=== PATIENT | female | born 1950 | race Caucasian/White ===

== ENCOUNTER 2021-06-22 07:07 | Inpatient (IN) | payer MEDICARE, BC ==
[2021-06-21 12:09] LABS: BASOPHILS % (AUTO) 0.6 % (0-1); EOSINOPHILS # (AUTO) 0.1 X10'3 (0-0.9); EOSINOPHILS % (AUTO) 1.9 % (0-6); HEMOGLOBIN 12.5 g/dl (12.0-16.0); LYMPHOCYTES # (AUTO) 1.7 X10'3 (1.1-4.8); MEAN CORPUSCULAR HEMOGLOBIN 27.7 PG (27.0-31.0); MEAN CORPUSCULAR HGB CONC 32.8 g/dL (33.0-36.5); MEAN CORPUSCULAR VOLUME 84.3 FL (78-98); MONOCYTES # (AUTO) 0.4 X10'3 (0-0.9); MONOCYTES % (AUTO) 7.7 % (2-12); NEUTROPHILS # (AUTO) 3.1 X10'3 (1.8-7.7); NEUTROPHILS % (AUTO) 57.8 % (42-75); PLATELET COUNT 126 X10'3 (140-440); RED BLOOD COUNT 4.51 X10'6 (4.20-5.60); RED CELL DISTRIBUTION WIDTH 15.5 % (11.5-14.5); WHITE BLOOD COUNT 5.4 X10'3 (4.5-11.0)
[2021-06-21 12:23] LABS: APTT 29 SECONDS (22-32)
[2021-06-21 12:58] LABS: ALBUMIN 4.2 G/DL (3.4-5.0); ANION GAP 14 (8-16); BLOOD UREA NITROGEN 24 MG/DL (7-18); BUN/CREATININE RATIO 16.6 (6.6-38.0); CALCIUM 8.8 MG/DL (8.5-10.1); CHLORIDE 106 MMOL/L (99-107); CREATININE 1.45 MG/DL (0.40-0.90); GLUCOSE 85 MG/DL (70-104); POTASSIUM 4.4 MMOL/L (3.5-5.1); SODIUM 141 MMOL/L (135-145); TOTAL CARBON DIOXIDE 21.1 MMOL/L (24-32); eGFR 36 ML/MIN
[~2021-06-22] VITALS: Ht 167.6 cm; Wt 81.6 kg
[2021-06-22] MEDS ORDERED: acetylcysteine 200 MG/ml 4ml vial PO PRN (07:25)
[2021-06-22] MEDS ORDERED: LIDOcaine/PRILOcaine 5gm cream TP ONE (07:25)
[2021-06-22] MEDS ORDERED: sodium bicarbonate (8.4%) inj. 150 ML in dextrose 5%-water 1,000 ML IV ONE (07:25)
[2021-06-22 07:27] VITALS: BP 116/70
[2021-06-22] MEDS ORDERED: ROSU20TA31 PO (07:49)
[2021-06-22] MEDS ORDERED: FURO20TA4 PO (07:49)
[2021-06-22] MEDS ORDERED: POTA8TAB69 PO (07:49)
[2021-06-22] MEDS ORDERED: Fish Oil PO (07:51)
[2021-06-22] MEDS: normal saline 1,000 ML IV SCH ×2 (08:25→16:14)
[2021-06-22] MEDS ORDERED: FLU VACC QS2021-22(6MOS UP)/PF 60 MCG/0.5 ML SYRINGE IM ONE (08:30)
[2021-06-22] MEDS ORDERED: pneumococcal 23-VAL P-sac vacc 25 mcg/0.5ml vial IMVAC ONE (08:30)
[2021-06-22 08:46] VITALS: BP 116/70
[2021-06-22] MEDS ORDERED: midazolam 1 mg/ML 2ml injection ONE ×2 (08:51→10:49)
[2021-06-22] MEDS ORDERED: verapamil 2.5 mg/ml inj IV ONE (08:51)
[2021-06-22] MEDS ORDERED: iohexol 350 MG/ML 50ML vial IV ONE (08:52)
[2021-06-22] MEDS ORDERED: LIDOcaine 1% (10mg/ml)w/preservative inj. 20ml MDV ONE (08:52)
[2021-06-22] MEDS ORDERED: fentaNYL/PF 50MCG/1 ML 2ML syringe ONE (08:52)
[2021-06-22] MEDS ORDERED: heparin 1,000unit/ml 10ml vial 10 ML ONE (08:52)
[2021-06-22] MEDS ORDERED: iohexol 350MG/ML 100ml bottle IV ONE (08:52)
[2021-06-22] MEDS ORDERED: nitroGLYCERIN-Tridil 50MG/D5W 250 ML IV ONE (09:09)
[2021-06-22] MEDS ORDERED: heparin 25,000 UNIT/250ml bag 250 ML IV ONE (10:14)
[2021-06-22] MEDS ORDERED: furosemide 40mg/4ml inj ONE ×2 (10:35→10:41)
[2021-06-22] MEDS ORDERED: LORazepam 2 mg/ml vial ONE (10:47)
[2021-06-22 12:10] LABS: ISTAT Hct MIX 33 %PCV (35-48); ISTAT O2 SATURATION MIX VENOUS 50 % (60-80); ISTAT O2 SATURATION MIX VENOUS 91 % (60-80); ISTAT SOURCE BLNK
[2021-06-22 15:00] VITALS: BP 164/73
[2021-06-22 19:15] VITALS: BP 105/68
[2021-06-22] MEDS: potassium chloride 10mEq ER tablet PO SCH (20:06)
[2021-06-22] MEDS: furosemide 40mg/4ml inj IV SCH (20:06)
[2021-06-22 22:00] VITALS: BP 100/63
[2021-06-23 02:00] VITALS: BP 130/89
[2021-06-23] MEDS: normal saline 1,000 ML IV SCH (03:18)
[2021-06-23 06:00] VITALS: BP 133/88
--- NOTE | 2021-06-23 06:29 | NUR ---
Problems reprioritized. Patient report given, questions answered & plan of care reviewed with Marixa BRADEN.
[2021-06-23 07:22] LABS: ALANINE AMINOTRANSFERASE 35 U/L (12-78); ALBUMIN 3.5 G/DL (3.4-5.0); ALBUMIN/GLOBULIN RATIO 1.3 (1.1-1.5); ALKALINE PHOSPHATASE 70 IU/L (46-116); ANION GAP 9 (8-16); ASPARTATE AMINO TRANSFERASE 13 U/L (10-37); BILIRUBIN,TOTAL 2.1 MG/DL (0.1-1.0); BLOOD UREA NITROGEN 23 MG/DL (7-18); BUN/CREATININE RATIO 16.8 (6.6-38.0); CALCIUM 8.8 MG/DL (8.5-10.1); CHLORIDE 109 MMOL/L (99-107); CHOL/HDL RATIO 3.8 (0.00-4.99); CHOLESTEROL 194 MG/DL (0-200); CREATININE 1.37 MG/DL (0.40-0.90); GLUCOSE 95 MG/DL (70-104); HDL CHOLESTEROL 51 MG/DL (35-60); LDL CHOLESTEROL 134 MG/DL (50-100); POTASSIUM 3.9 MMOL/L (3.5-5.1); SODIUM 142 MMOL/L (135-145); TOTAL CARBON DIOXIDE 24.2 MMOL/L (24-32); TOTAL PROTEIN 6.3 G/DL (6.4-8.2); TRIGLYCERIDES 74 MG/DL (20-135); eGFR 38 ML/MIN
[2021-06-23] MEDS: potassium chloride 10mEq ER tablet PO SCH (07:58)
[2021-06-23] MEDS: furosemide 40mg/4ml inj IV SCH (07:59)
[2021-06-23] MEDS ORDERED: OMEGA-3/DHA/EPA/FISH OIL 1 EACH CAPSULE.DR PO SCH (08:00)
[2021-06-23] MEDS ORDERED: furosemide 20MG tablet PO SCH (08:00)
[2021-06-23 11:00] VITALS: BP 104/54
[2021-06-23] MEDS ORDERED: FURO40TA4 PO ×2 (13:03)
[2021-07-13] MEDS ORDERED: FURO20TA4 PO (16:40)
[2021-07-20] MEDS ORDERED: FURO20TA4 PO (08:14)
[2021-07-20] MEDS ORDERED: HYDR-3972 PO (08:14)
[2021-07-20] MEDS ORDERED: POTA8TAB69 PO (08:14)
[2021-07-20] MEDS ORDERED: LOP12.5T PO (08:14)
[2021-07-20] MEDS ORDERED: ASPI-1071 PO (08:14)
== END 2021-06-23 15:58 | disposition home or self-care (01) | DRG 286 ==
LOC: SSTAY O 07:07 → PCU 3S 11:43
PROVIDERS: ADMIT Internal Medicine Cardiovascular Disease; ATTEND Internal Medicine Cardiovascular Disease
PROC: 4A023N8 Measurement of Cardiac Sampling and Pressure, Bilateral, Percutaneous Approach (ICD-10-PCS; principal; 2021-06-22)
PROC: B2111ZZ Fluoroscopy of Multiple Coronary Arteries using Low Osmolar Contrast (ICD-10-PCS; 2021-06-22)
PROC: B2151ZZ Fluoroscopy of Left Heart using Low Osmolar Contrast (ICD-10-PCS; 2021-06-22)
PROC: B3101ZZ Fluoroscopy of Thoracic Aorta using Low Osmolar Contrast (ICD-10-PCS; 2021-06-22)
DX: I35.8 Other nonrheumatic aortic valve disorders (principal); I50.21 Acute systolic (congestive) heart failure; E78.5 Hyperlipidemia, unspecified; G47.33 Obstructive sleep apnea (adult) (pediatric); Z28.21 Immunization not carried out because of patient refusal; Z90.710 Acquired absence of both cervix and uterus; Z82.49 Family history of ischemic heart disease and other diseases of the circulatory system; Z83.3 Family history of diabetes mellitus; Z80.0 Family history of malignant neoplasm of digestive organs
CPT/HCPCS: 36415; 76937; 80048; 80053; 80061; 82803; 83880; 85014; 85025; 85610; 85730; 93005; 93306; 93460; 93567; 94660; 94760; 99152; 99153; A4620; A5120; A6258; C1769; C1894; G0378; J1644; J1940; J2060; J2250; J3010; J3490; J7030; Q9967

== ENCOUNTER 2021-07-01 08:57 | Outpatient (CLI) | payer MEDICARE, BC ==
[~2021-07-01] VITALS: Ht 165.1 cm; Wt 83.0 kg
[~2021-07-01 08:57] MED LIST: FURO40TA4 PO; Fish Oil PO; POTA8TAB69 PO; ROSU20TA31 PO
[2021-07-01] MEDS ORDERED: iohexol 350MG/ML 100ml bottle IV ONE (09:45)
[2021-07-01] MEDS ORDERED: IODIXANOL 320 MG/ML INFUS..BTL 100ML IV ONE (10:09)
[2021-07-01] MEDS ORDERED: IODIXANOL 320 MG/ML INFUS..BTL 50ML IV ONE (10:10)
[2021-07-01 10:32] LABS: EOSINOPHILS # (AUTO) 0.1 X10'3 (0-0.9); EOSINOPHILS % (AUTO) 2.3 % (0-6); HEMATOCRIT 37.2 % (35.0-45.0); HEMOGLOBIN 12.5 g/dl (12.0-16.0); LYMPHOCYTES # (AUTO) 1.7 X10'3 (1.1-4.8); LYMPHOCYTES % (AUTO) 33.7 % (21-51); MEAN CORPUSCULAR HEMOGLOBIN 27.9 PG (27.0-31.0); MEAN CORPUSCULAR HGB CONC 33.5 g/dL (33.0-36.5); MEAN CORPUSCULAR VOLUME 83.3 FL (78-98); MEAN PLATELET VOLUME 10.2 FL (7.4-10.4); MONOCYTES # (AUTO) 0.4 X10'3 (0-0.9); MONOCYTES % (AUTO) 8.6 % (2-12); NEUTROPHILS # (AUTO) 2.7 X10'3 (1.8-7.7); NEUTROPHILS % (AUTO) 54.4 % (42-75); PLATELET COUNT 131 X10'3 (140-440); RED BLOOD COUNT 4.47 X10'6 (4.20-5.60); RED CELL DISTRIBUTION WIDTH 15.1 % (11.5-14.5); WHITE BLOOD COUNT 4.9 X10'3 (4.5-11.0)
[2021-07-01 10:33] LABS: APTT 28 SECONDS (22-32)
[2021-07-01 10:36] LABS: ALANINE AMINOTRANSFERASE 33 U/L (12-78); ALBUMIN/GLOBULIN RATIO 1.2 (1.1-1.5); ALKALINE PHOSPHATASE 84 IU/L (46-116); ASPARTATE AMINO TRANSFERASE 19 U/L (10-37); BILIRUBIN,TOTAL 1.5 MG/DL (0.1-1.0); BLOOD UREA NITROGEN 28 MG/DL (7-18); BUN/CREATININE RATIO 19.4 (6.6-38.0); CALCIUM 8.9 MG/DL (8.5-10.1); CHLORIDE 107 MMOL/L (99-107); CREATININE 1.44 MG/DL (0.40-0.90); GLUCOSE 93 MG/DL (70-104); POTASSIUM 3.7 MMOL/L (3.5-5.1); TOTAL PROTEIN 7.4 G/DL (6.4-8.2); eGFR 36 ML/MIN
[2021-07-01 10:37] LABS: ANION GAP 12 (8-16); SODIUM 144 MMOL/L (135-145); TOTAL CARBON DIOXIDE 24.8 MMOL/L (24-32)
[2021-07-01] MEDS ORDERED: albuterol 2.5 MG/3 ML nebule NEB ONE (13:15)
== END 2021-07-01 23:59 | disposition home or self-care (01) ==
LOC: RAD 08:57
PROVIDERS: ATTEND Internal Medicine Cardiovascular Disease
DX: M47.819 Spondylosis without myelopathy or radiculopathy, site unspecified (principal); K80.20 Calculus of gallbladder without cholecystitis without obstruction; I71.2 Thoracic aortic aneurysm, without rupture; K42.9 Umbilical hernia without obstruction or gangrene; I51.7 Cardiomegaly; I35.1 Nonrheumatic aortic (valve) insufficiency; I70.0 Atherosclerosis of aorta; I65.23 Occlusion and stenosis of bilateral carotid arteries; R94.2 Abnormal results of pulmonary function studies; Z20.822 Contact with and (suspected) exposure to COVID-19
CPT/HCPCS: 36415; 71046; 71275; 74174; 80053; 85025; 85610; 85730; 87635; 93880; 94060; 94727; 94729; 94760; C9803; Q9967

== ENCOUNTER 2021-07-30 22:29 | Inpatient (IN) | payer MEDICARE, BC ==
[~2021-07-30] VITALS: Ht 167.6 cm; Wt 89.6 kg
[~2021-07-30 22:29] MED LIST changes: +ASPI-1071 PO; +FURO20TA4 PO; -FURO40TA4 PO; +HYDR-3972 PO; +LOP12.5T PO
[2021-07-30 23:18] LABS: BASOPHILS # (AUTO) 0.1 X10'3 (0-0.2); BASOPHILS % (AUTO) 0.8 % (0-1); EOSINOPHILS % (AUTO) 0.4 % (0-6); HEMATOCRIT 29.6 % (35.0-45.0); HEMOGLOBIN 9.9 g/dl (12.0-16.0); LYMPHOCYTES # (AUTO) 1.5 X10'3 (1.1-4.8); LYMPHOCYTES % (AUTO) 14.6 % (21-51); MEAN CORPUSCULAR HEMOGLOBIN 28.6 PG (27.0-31.0); MEAN CORPUSCULAR HGB CONC 33.5 g/dL (33.0-36.5); MEAN CORPUSCULAR VOLUME 85.1 FL (78-98); MONOCYTES # (AUTO) 1.3 X10'3 (0-0.9); NEUTROPHILS # (AUTO) 7.6 X10'3 (1.8-7.7); NEUTROPHILS % (AUTO) 72.2 % (42-75); PLATELET COUNT 309 X10'3 (140-440); RED BLOOD COUNT 3.48 X10'6 (4.20-5.60); RED CELL DISTRIBUTION WIDTH 17.7 % (11.5-14.5); WHITE BLOOD COUNT 10.5 X10'3 (4.5-11.0)
[2021-07-30 23:37] LABS: ALANINE AMINOTRANSFERASE 226 U/L (12-78); ALBUMIN 2.9 G/DL (3.4-5.0); ALBUMIN/GLOBULIN RATIO 0.9 (1.1-1.5); ALKALINE PHOSPHATASE 162 IU/L (46-116); ANION GAP 17 (8-16); ASPARTATE AMINO TRANSFERASE 189 U/L (10-37); BILIRUBIN,TOTAL 1.4 MG/DL (0.1-1.0); BLOOD UREA NITROGEN 31 MG/DL (7-18); BUN/CREATININE RATIO 20.7 (6.6-38.0); CALCIUM 8.5 MG/DL (8.5-10.1); CHLORIDE 96 MMOL/L (99-107); GLUCOSE 134 MG/DL (70-104); POTASSIUM 4.1 MMOL/L (3.5-5.1); SODIUM 132 MMOL/L (135-145); TOTAL PROTEIN 6.2 G/DL (6.4-8.2); eGFR 34 ML/MIN
[2021-07-30] MEDS ORDERED: diltiazem 5mg/ml 5ml inj. IV ONE ×2 (23:45)
[2021-07-30] MEDS ORDERED: metoprolol tartrate 1mg/ml inj IV ONE (23:45)
[2021-07-30] MEDS ORDERED: diltiazem-NS 100mg/100ml 125 ML IV PRN (23:45)
[2021-07-31] MEDS: diltiazem-NS 100mg/100ml 100 ML IV PRN ×2 (00:03→07:18)
[2021-07-31] MEDS ORDERED: diltiazem 5mg/ml 5ml inj. IV ONE (00:15)
[2021-07-31] MEDS ORDERED: metoprolol tartrate 1mg/ml inj IV ONE (00:15)
[2021-07-31] MEDS ORDERED: normal saline 1000ML IV soln IVB ONE (00:45)
[2021-07-31] MEDS ORDERED: POTA8CAP20 PO (00:50)
[2021-07-31] MEDS ORDERED: ASPI-1397 PO (00:50)
[2021-07-31] MEDS ORDERED: FURO40TA4 PO (00:50)
[2021-07-31] MEDS ORDERED: METO25TA6 PO (00:50)
[2021-07-31] MEDS ORDERED: amiodarone 150mg/dext, iso-os 100 ML IV ONE (01:05)
[2021-07-31 01:15] LABS: MAGNESIUM 2.2 MG/DL (1.5-2.4)
[2021-07-31] MEDS: amiodarone/D5 360MG/200ML BAG 200 ML IV SCH ×4 (01:42→19:07)
[2021-07-31] MEDS ORDERED: diphenhydrAMINE 25mg capsule PO PRN (03:35)
[2021-07-31] MEDS ORDERED: bisacodyl 10mg suppository rectal RC PRN (03:35)
[2021-07-31] MEDS ORDERED: ondansetron/PF 4mg/2ml inj IV PRN (03:35)
[2021-07-31] MEDS ORDERED: diphenhydrAMINE 50 mg/ml inj IV PRN (03:35)
[2021-07-31] MEDS ORDERED: ondansetron 4mg rapidly disintigrating tab PO PRN (03:35)
[2021-07-31] MEDS ORDERED: ipratropium/albuterol 3ml nebule NEB PRN (03:35)
[2021-07-31] MEDS ORDERED: mag hydrox/Alum hydrox/simeth 30ml oral suspension PO PRN (03:35)
[2021-07-31] MEDS ORDERED: morphine 2 MG/ML inj. syringe IV PRN ×2 (03:35)
[2021-07-31] MEDS ORDERED: naloxone 0.4 mg/ml inj IV PRN (03:35)
[2021-07-31] MEDS ORDERED: acetaminophen 325mg tablet PO PRN (03:35)
[2021-07-31] MEDS ORDERED: acetaminophen 650mg rectal suppository RC PRN (03:35)
[2021-07-31] MEDS ORDERED: heparin 10,000 units/1 ML INJ IV ONE (03:50)
[2021-07-31] MEDS ORDERED: heparin 25,000 UNIT/250ml bag 250 ML IV SCH (03:50)
[2021-07-31] MEDS ORDERED: metoprolol tartrate 12.5mg (1/2 tablet) PO PRN (03:50)
[2021-07-31] MEDS ORDERED: heparin 10,000 units/1 ML INJ IV PRN (03:50)
[2021-07-31 05:17] LABS: EOSINOPHILS % (AUTO) 0.2 % (0-6); HEMATOCRIT 27.9 % (35.0-45.0); HEMOGLOBIN 9.1 g/dl (12.0-16.0); MEAN CORPUSCULAR HEMOGLOBIN 27.8 PG (27.0-31.0); MEAN CORPUSCULAR HGB CONC 32.7 g/dL (33.0-36.5); RED BLOOD COUNT 3.29 X10'6 (4.20-5.60)
[2021-07-31 05:19] LABS: BASOPHILS # (AUTO) 0.1 X10'3 (0-0.2); BASOPHILS % (AUTO) 0.8 % (0-1); LYMPHOCYTES # (AUTO) 1.3 X10'3 (1.1-4.8); MEAN CORPUSCULAR VOLUME 85.1 FL (78-98); MEAN PLATELET VOLUME 8.4 FL (7.4-10.4); MONOCYTES % (AUTO) 11.3 % (2-12); NEUTROPHILS # (AUTO) 6.8 X10'3 (1.8-7.7); NEUTROPHILS % (AUTO) 73.7 % (42-75); PLATELET COUNT 252 X10'3 (140-440); RED CELL DISTRIBUTION WIDTH 17.7 % (11.5-14.5); WHITE BLOOD COUNT 9.2 X10'3 (4.5-11.0)
[2021-07-31 05:39] LABS: APTT 34 SECONDS (22-32)
[2021-07-31 05:44] LABS: HEMOGLOBIN A1C 5.6 % (4.5-6.2)
[2021-07-31 05:50] LABS: CREATINE KINASE 33 U/L (26-192); LIPASE 62 U/L (73-393); PHOSPHORUS 5.1 MG/DL (2.3-4.5)
[2021-07-31] MEDS: docusate sod 100mg capsule PO SCH ×3 (08:00→19:35)
[2021-07-31] MEDS: pantoprazole 40mg Tablet.DR PO SCH (10:08)
[2021-07-31] MEDS: aspirin 81mg, enteric-coated 1 TAB TABLET.DR PO SCH (10:08)
[2021-07-31] MEDS: furosemide 40mg/4ml inj IV SCH ×2 (10:10→20:03)
[2021-07-31] MEDS: levoFLOXACIN-Levaquin 750MG/D5 150 ML IV SCH (10:34)
--- NOTE | 2021-07-31 11:19 | NUR ---
called dr saleh and clarified cancellation orders for cardizem and heparin. both meds are to be stopped and new order received for cardizem 30mg PO Q6h per delfino. order placed as received
--- NOTE | 2021-07-31 12:26 | NUR ---
pt reports feelings of retention that she needs to urinate but is unable to. is requesting beckett catheter. scanned bladder which shows retention of 597. rusu made aware and verbal order for beckett catheter received. order placed as received.
[2021-07-31] MEDS: diltiazem 30mg tablet PO SCH ×3 (12:30→19:35)
[2021-07-31] MEDS ORDERED: diltiazem 30mg tablet PO SCH (14:00)
[2021-07-31] MEDS ORDERED: docusate sod 100mg capsule PO ONE (19:15)
[2021-07-31] MEDS: HYDROcodone/acetaminophen 5mg/325mg tablet PO PRN (20:03)
[2021-07-31] MEDS ORDERED: temazepam 15mg capsule PO PRN (21:00)
[2021-07-31 22:27] VITALS: BP 118/98
[2021-08-01] VITALS (11 sets, daily range): BP systolic 88–125; BP diastolic 64–93
[2021-08-01] MEDS: amiodarone/D5 360MG/200ML BAG 200 ML IV SCH ×2 (01:22→07:40)
[2021-08-01] MEDS: HYDROcodone/acetaminophen 5mg/325mg tablet PO PRN (02:14)
[2021-08-01] MEDS: diltiazem 30mg tablet PO SCH ×3 (02:16→14:00)
[2021-08-01 07:05] LABS: BASOPHILS % (AUTO) 0.4 % (0-1); EOSINOPHILS # (AUTO) 0.1 X10'3 (0-0.9); EOSINOPHILS % (AUTO) 0.5 % (0-6); HEMATOCRIT 27.8 % (35.0-45.0); HEMOGLOBIN 9.1 g/dl (12.0-16.0); LYMPHOCYTES # (AUTO) 0.9 X10'3 (1.1-4.8); LYMPHOCYTES % (AUTO) 9.4 % (21-51); MEAN CORPUSCULAR HEMOGLOBIN 27.1 PG (27.0-31.0); MEAN CORPUSCULAR HGB CONC 32.6 g/dL (33.0-36.5); MEAN CORPUSCULAR VOLUME 83.2 FL (78-98); MEAN PLATELET VOLUME 7.9 FL (7.4-10.4); MONOCYTES # (AUTO) 1.2 X10'3 (0-0.9); MONOCYTES % (AUTO) 12.5 % (2-12); NEUTROPHILS # (AUTO) 7.4 X10'3 (1.8-7.7); NEUTROPHILS % (AUTO) 77.2 % (42-75); PLATELET COUNT 296 X10'3 (140-440); RED BLOOD COUNT 3.35 X10'6 (4.20-5.60); WHITE BLOOD COUNT 9.6 X10'3 (4.5-11.0)
[2021-08-01 07:38] LABS: ALANINE AMINOTRANSFERASE 305 U/L (12-78); ALBUMIN 2.9 G/DL (3.4-5.0); ALBUMIN/GLOBULIN RATIO 0.9 (1.1-1.5); ALKALINE PHOSPHATASE 132 IU/L (46-116); ANION GAP 10 (8-16); ASPARTATE AMINO TRANSFERASE 170 U/L (10-37); BILIRUBIN,TOTAL 1.3 MG/DL (0.1-1.0); BLOOD UREA NITROGEN 28 MG/DL (7-18); CALCIUM 8.2 MG/DL (8.5-10.1); CHLORIDE 99 MMOL/L (99-107); CHOL/HDL RATIO 3.4 (0.00-4.99); CHOLESTEROL 104 MG/DL (0-200); CREATININE 1.47 MG/DL (0.40-0.90); GLUCOSE 119 MG/DL (70-104); HDL CHOLESTEROL 31 MG/DL (35-60); LDL CHOLESTEROL 59 MG/DL (50-100); POTASSIUM 3.6 MMOL/L (3.5-5.1); SODIUM 131 MMOL/L (135-145); TOTAL CARBON DIOXIDE 21.8 MMOL/L (24-32); TOTAL PROTEIN 6.1 G/DL (6.4-8.2); TRIGLYCERIDES 58 MG/DL (20-135); eGFR 35 ML/MIN
[2021-08-01] MEDS: pantoprazole 40mg Tablet.DR PO SCH (07:40)
[2021-08-01] MEDS: aspirin 81mg, enteric-coated 1 TAB TABLET.DR PO SCH (07:40)
[2021-08-01] MEDS: docusate sod 100mg capsule PO SCH ×2 (07:40→20:04)
[2021-08-01] MEDS: furosemide 40mg/4ml inj IV SCH ×2 (07:40→19:49)
[2021-08-01] MEDS ORDERED: diltiazem 5mg/ml 5ml inj. IV ONE (18:50)
[2021-08-01] MEDS ORDERED: diltiazem-D5W 125mg/125ml 125 ML IV SCH (18:50)
[2021-08-01] MEDS: diltiazem-NS 100mg/100ml 100 ML IV SCH (19:58)
[2021-08-01] MEDS ORDERED: apixaban 5mg tablet PO SCH (20:00)
[2021-08-01] MEDS: amiodarone 200mg tablet PO SCH (20:04)
[2021-08-01 20:11] LABS: ALANINE AMINOTRANSFERASE 268 U/L (12-78); ALBUMIN 2.6 G/DL (3.4-5.0); ALBUMIN/GLOBULIN RATIO 0.8 (1.1-1.5); ALKALINE PHOSPHATASE 133 IU/L (46-116); ASPARTATE AMINO TRANSFERASE 121 U/L (10-37); BILIRUBIN,DIRECT 0.5 MG/DL (0-0.3); BILIRUBIN,TOTAL 1.1 MG/DL (0.1-1.0)
[2021-08-01] MEDS: carVEDilol 12.5mg tablet PO SCH (21:03)
[2021-08-02] VITALS (10 sets, daily range): BP systolic 73–133; BP diastolic 51–105
[2021-08-02] MEDS: acetaminophen 325mg tablet PO PRN ×2 (03:59→08:33)
[2021-08-02] MEDS: diltiazem-NS 100mg/100ml 100 ML IV SCH (04:46)
[2021-08-02 06:06] LABS: BASOPHILS # (AUTO) 0.1 X10'3 (0-0.2); BASOPHILS % (AUTO) 0.6 % (0-1); EOSINOPHILS % (AUTO) 0.5 % (0-6); HEMATOCRIT 27.3 % (35.0-45.0); HEMOGLOBIN 8.9 g/dl (12.0-16.0); LYMPHOCYTES # (AUTO) 0.8 X10'3 (1.1-4.8); LYMPHOCYTES % (AUTO) 8.9 % (21-51); MEAN CORPUSCULAR HEMOGLOBIN 27.4 PG (27.0-31.0); MEAN CORPUSCULAR HGB CONC 32.6 g/dL (33.0-36.5); MEAN CORPUSCULAR VOLUME 84.1 FL (78-98); MEAN PLATELET VOLUME 7.9 FL (7.4-10.4); MONOCYTES % (AUTO) 11.9 % (2-12); NEUTROPHILS # (AUTO) 6.8 X10'3 (1.8-7.7); NEUTROPHILS % (AUTO) 78.1 % (42-75); PLATELET COUNT 261 X10'3 (140-440); RED BLOOD COUNT 3.25 X10'6 (4.20-5.60); RED CELL DISTRIBUTION WIDTH 17.8 % (11.5-14.5); WHITE BLOOD COUNT 8.8 X10'3 (4.5-11.0)
[2021-08-02 06:31] LABS: ALANINE AMINOTRANSFERASE 245 U/L (12-78); ALBUMIN 2.7 G/DL (3.4-5.0); ALBUMIN/GLOBULIN RATIO 0.8 (1.1-1.5); ALKALINE PHOSPHATASE 127 IU/L (46-116); ANION GAP 13 (8-16); ASPARTATE AMINO TRANSFERASE 107 U/L (10-37); BILIRUBIN,TOTAL 1.2 MG/DL (0.1-1.0); BLOOD UREA NITROGEN 35 MG/DL (7-18); BUN/CREATININE RATIO 15.4 (6.6-38.0); CALCIUM 8.3 MG/DL (8.5-10.1); CHLORIDE 96 MMOL/L (99-107); CREATININE 2.27 MG/DL (0.40-0.90); GLUCOSE 136 MG/DL (70-104); POTASSIUM 4.1 MMOL/L (3.5-5.1); SODIUM 131 MMOL/L (135-145); TOTAL CARBON DIOXIDE 22.3 MMOL/L (24-32); TOTAL PROTEIN 5.9 G/DL (6.4-8.2); eGFR 21 ML/MIN
--- NOTE | 2021-08-02 06:44 | NUR ---
Problems reprioritized. Patient report given, questions answered & plan of care reviewed with Karla BRADEN.
[2021-08-02] MEDS: furosemide 40mg/4ml inj IV SCH ×2 (08:00→20:32)
[2021-08-02] MEDS: carVEDilol 12.5mg tablet PO SCH ×2 (08:00→20:33)
[2021-08-02] MEDS: levoFLOXACIN-Levaquin 750MG/D5 150 ML IV SCH (08:31)
[2021-08-02] MEDS: aspirin 81mg, enteric-coated 1 TAB TABLET.DR PO SCH (08:33)
[2021-08-02] MEDS: pantoprazole 40mg Tablet.DR PO SCH (08:33)
[2021-08-02] MEDS: docusate sod 100mg capsule PO SCH ×2 (08:33→20:32)
[2021-08-02] MEDS: amiodarone 200mg tablet PO SCH ×2 (09:02→20:33)
[2021-08-02] MEDS ORDERED: LIDOCAINE 1% w/preservative (10 MG/ML) inj. 10mL VIAL ONE (10:49)
--- NOTE | 2021-08-02 18:56 | NUR ---
Problems reprioritized. Patient report given, questions answered & plan of care reviewed with Francois RN, patient stable at transfer of care.
[2021-08-03] VITALS (8 sets, daily range): BP systolic 92–125; BP diastolic 57–99
--- NOTE | 2021-08-03 06:39 | NUR ---
Problems reprioritized. Patient report given, questions answered & plan of care reviewed with Karla BRADEN.
[2021-08-03 07:01] LABS: BASOPHILS % (AUTO) 0.5 % (0-1); EOSINOPHILS # (AUTO) 0.1 X10'3 (0-0.9); EOSINOPHILS % (AUTO) 0.9 % (0-6); HEMATOCRIT 26.8 % (35.0-45.0); HEMOGLOBIN 8.9 g/dl (12.0-16.0); LYMPHOCYTES # (AUTO) 0.9 X10'3 (1.1-4.8); LYMPHOCYTES % (AUTO) 12.2 % (21-51); MEAN CORPUSCULAR HEMOGLOBIN 27.7 PG (27.0-31.0); MEAN CORPUSCULAR HGB CONC 33.2 g/dL (33.0-36.5); MEAN CORPUSCULAR VOLUME 83.5 FL (78-98); MEAN PLATELET VOLUME 7.8 FL (7.4-10.4); MONOCYTES # (AUTO) 0.9 X10'3 (0-0.9); NEUTROPHILS # (AUTO) 5.8 X10'3 (1.8-7.7); NEUTROPHILS % (AUTO) 74.4 % (42-75); PLATELET COUNT 223 X10'3 (140-440); RED BLOOD COUNT 3.21 X10'6 (4.20-5.60); RED CELL DISTRIBUTION WIDTH 17.8 % (11.5-14.5); WHITE BLOOD COUNT 7.8 X10'3 (4.5-11.0)
[2021-08-03 07:19] LABS: ALANINE AMINOTRANSFERASE 191 U/L (12-78); ALBUMIN 2.6 G/DL (3.4-5.0); ALBUMIN/GLOBULIN RATIO 0.8 (1.1-1.5); ALKALINE PHOSPHATASE 131 IU/L (46-116); ANION GAP 12 (8-16); ASPARTATE AMINO TRANSFERASE 64 U/L (10-37); BLOOD UREA NITROGEN 53 MG/DL (7-18); BUN/CREATININE RATIO 18.5 (6.6-38.0); CALCIUM 8.3 MG/DL (8.5-10.1); CHLORIDE 99 MMOL/L (99-107); CREATININE 2.87 MG/DL (0.40-0.90); GLUCOSE 117 MG/DL (70-104); SODIUM 133 MMOL/L (135-145); TOTAL CARBON DIOXIDE 22.2 MMOL/L (24-32); TOTAL PROTEIN 5.7 G/DL (6.4-8.2); eGFR 16 ML/MIN
[2021-08-03] MEDS: docusate sod 100mg capsule PO SCH ×2 (07:52→20:21)
[2021-08-03] MEDS: amiodarone 200mg tablet PO SCH ×2 (07:52→20:21)
[2021-08-03] MEDS: pantoprazole 40mg Tablet.DR PO SCH (07:53)
[2021-08-03] MEDS: aspirin 81mg, enteric-coated 1 TAB TABLET.DR PO SCH (07:53)
[2021-08-03] MEDS: carVEDilol 12.5mg tablet PO SCH (07:54)
[2021-08-03] MEDS: normal saline 500ml IV soln 500 ML IV SCH ×2 (09:50→19:50)
--- NOTE | 2021-08-03 18:44 | NUR ---
Problems reprioritized. Patient report given, questions answered & plan of care reviewed with SAMPSON Dominguez.
[2021-08-03] MEDS: carVEDilol 3.125mg tablet PO SCH (20:00)
[2021-08-03] MEDS: acetaminophen 325mg tablet PO PRN (20:22)
[2021-08-03] MEDS: magnesium hydroxide 30ml (MOM) UD suspension PO PRN (20:25)
[2021-08-04] MEDS: normal saline 500ml IV soln 500 ML IV SCH ×2 (05:50→15:50)
[2021-08-04 06:00] VITALS: BP 107/82
--- NOTE | 2021-08-04 06:25 | NUR ---
Problems reprioritized. Patient report given, questions answered & plan of care reviewed with Karla. Addendum: 08/04/21 at 0625 by Raudel Layton RN Amended: Links added.
[2021-08-04 06:38] LABS: BASOPHILS % (AUTO) 0.4 % (0-1); EOSINOPHILS # (AUTO) 0.1 X10'3 (0-0.9); EOSINOPHILS % (AUTO) 0.8 % (0-6); HEMATOCRIT 29.9 % (35.0-45.0); HEMOGLOBIN 9.8 g/dl (12.0-16.0); LYMPHOCYTES # (AUTO) 1.2 X10'3 (1.1-4.8); LYMPHOCYTES % (AUTO) 15.4 % (21-51); MEAN CORPUSCULAR HEMOGLOBIN 27.6 PG (27.0-31.0); MEAN CORPUSCULAR HGB CONC 32.7 g/dL (33.0-36.5); MEAN CORPUSCULAR VOLUME 84.3 FL (78-98); MEAN PLATELET VOLUME 7.5 FL (7.4-10.4); MONOCYTES % (AUTO) 12.9 % (2-12); NEUTROPHILS # (AUTO) 5.6 X10'3 (1.8-7.7); NEUTROPHILS % (AUTO) 70.5 % (42-75); PLATELET COUNT 257 X10'3 (140-440); RED BLOOD COUNT 3.54 X10'6 (4.20-5.60); RED CELL DISTRIBUTION WIDTH 17.8 % (11.5-14.5); WHITE BLOOD COUNT 7.9 X10'3 (4.5-11.0)
[2021-08-04 07:15] LABS: ALANINE AMINOTRANSFERASE 143 U/L (12-78); ALBUMIN 2.4 G/DL (3.4-5.0); ALBUMIN/GLOBULIN RATIO 0.8 (1.1-1.5); ALKALINE PHOSPHATASE 118 IU/L (46-116); ANION GAP 8 (8-16); ASPARTATE AMINO TRANSFERASE 37 U/L (10-37); BILIRUBIN,TOTAL 0.9 MG/DL (0.1-1.0); BLOOD UREA NITROGEN 49 MG/DL (7-18); BUN/CREATININE RATIO 21.3 (6.6-38.0); CALCIUM 8.3 MG/DL (8.5-10.1); CHLORIDE 103 MMOL/L (99-107); GLUCOSE 108 MG/DL (70-104); POTASSIUM 3.9 MMOL/L (3.5-5.1); SODIUM 136 MMOL/L (135-145); TOTAL CARBON DIOXIDE 24.7 MMOL/L (24-32); TOTAL PROTEIN 5.5 G/DL (6.4-8.2); eGFR 21 ML/MIN
[2021-08-04] MEDS: levoFLOXACIN 750MG TABLET PO SCH (08:01)
[2021-08-04] MEDS: aspirin 81mg, enteric-coated 1 TAB TABLET.DR PO SCH (08:01)
[2021-08-04] MEDS: docusate sod 100mg capsule PO SCH ×2 (08:01→20:50)
[2021-08-04] MEDS: amiodarone 200mg tablet PO SCH ×2 (08:01→20:50)
[2021-08-04] MEDS: carVEDilol 3.125mg tablet PO SCH (08:02)
[2021-08-04] MEDS: pantoprazole 40mg Tablet.DR PO SCH (08:02)
--- NOTE | 2021-08-04 08:28 | NUR ---
Initial: Pt admitted w/ decompensated heart failure and pleural effusion, w/ recent hx of AVR on 07/15 per EMR. Currently on Regular diet w/ mostly 100% intake of meals meeting est nutrient needs at this time. Pt noted to have had thoracentesis 08/03 w/ 550ml out. LBM 07/30 receiving routine and PRN bowel care. No nutrition intervention implemented at this time, will continue to monitor. Recs: 1. Continue Regular diet as tolerated 2. Monitor need for additional protein 3. Routine bowel care; 5 days constipation 4. Scaled wts Addendum: 08/04/21 at [address] Amended: Links added.
[2021-08-04] MEDS ORDERED: APIX5TAB3 PO (09:55)
[2021-08-04] MEDS ORDERED: AMOX-580 PO (09:55)
[2021-08-04] MEDS ORDERED: carVEDilol 3.125mg tablet PO ONE (10:00)
--- NOTE | 2021-08-04 10:30 | NUR ---
O2 Sat at rest on room air:__87_% If below 89%: Recovery O2 Sat at rest on ___LPM:___%:___% via (mask/nasal cannula, etc..) No further documentation is necessary. If O2 Sat did not drop below 89% on room air,ambulate patient on room air. O2 Sat while ambulating on room air:___% Recovery O2 Sat while ambulating on ___LPM:___% No further documentation is necessary. If patient does not drop below 89% while ambulating, he/she does not qualify for home O2.
--- NOTE | 2021-08-04 10:50 | NUR ---
O2 Sat at rest on room air:_87__% If below 89%: Recovery O2 Sat at rest on _2__LPM:_96__%:___% via nasal cannula (mask/nasal cannula, etc..) No further documentation is necessary. If O2 Sat did not drop below 89% on room air,ambulate patient on room air. O2 Sat while ambulating on room air:___% Recovery O2 Sat while ambulating on ___LPM:___% No further documentation is necessary. If patient does not drop below 89% while ambulating, he/she does not qualify for home O2.
[2021-08-04 11:00] VITALS: BP 103/85
--- NOTE | 2021-08-04 14:29 | NUR ---
paged Dr. Rojas regarding pt not having an IV and he is requesting IV Digoxin. PAGER ID: [phone] MESSAGE: [phone], Roxanna Adhikari. I forgot pt doesn't have an IV, do you want me to try and get a new IV in? Karla U [id number].
[2021-08-04 15:00] VITALS: BP 116/89
--- NOTE | 2021-08-04 15:36 | NUR ---
Paged Dr. Rojas asking for PO digoxin. PAGER ID: [phone] MESSAGE: [phone], Roxanna Adhikari. I just tried to find a vein for a new IV and im not having success. Can we get that digoxin PO? Karla U [id number].
[2021-08-04] MEDS ORDERED: digoxin 250mcg (0.25mg) tablet PO ONE (15:40)
[2021-08-04 18:00] VITALS: BP 133/77
--- NOTE | 2021-08-04 18:44 | NUR ---
Problems reprioritized. Patient report given, questions answered & plan of care reviewed with SAMPSON Patel.
--- NOTE | 2021-08-04 18:58 | NUR ---
Patient in room PCU 3011. I have received report from DIAMOND BRADEN and had the opportunity to ask questions and assume patient care.
[2021-08-04] MEDS: carvedilol 6.25mg tablet PO SCH (20:51)
[2021-08-04] MEDS: magnesium hydroxide 30ml (MOM) UD suspension PO PRN (20:54)
[2021-08-04 22:00] VITALS: BP 101/62
[2021-08-05] VITALS (7 sets, daily range): BP systolic 114–164; BP diastolic 62–102
[2021-08-05] MEDS: normal saline 500ml IV soln 500 ML IV SCH (01:50)
--- NOTE | 2021-08-05 02:10 | NUR ---
PATIENT REFUSING TO HAVE AN IV STARTED. BOTH ARMS ARE SWOLLEN FROM PRIOR IV INSERTIONS. PATIENT EDUCATED AND STILL INSIST THAT SHE DOES NOT WANT TO BE POKED WITH A NEEDLE. DAY SHIFT HOSPITALIST AWARE AND I INFORMED NIGHT DOCTOR. WILL CONTINUE TO MONITOR PATIENT FOR AFIB.
[2021-08-05 06:33] LABS: BASOPHILS % (AUTO) 0.5 % (0-1); EOSINOPHILS # (AUTO) 0.1 X10'3 (0-0.9); EOSINOPHILS % (AUTO) 0.7 % (0-6); HEMATOCRIT 30.5 % (35.0-45.0); LYMPHOCYTES % (AUTO) 12.8 % (21-51); MEAN CORPUSCULAR HEMOGLOBIN 26.9 PG (27.0-31.0); MEAN CORPUSCULAR HGB CONC 32.7 g/dL (33.0-36.5); MEAN CORPUSCULAR VOLUME 82.4 FL (78-98); MEAN PLATELET VOLUME 7.4 FL (7.4-10.4); MONOCYTES # (AUTO) 1.1 X10'3 (0-0.9); NEUTROPHILS # (AUTO) 5.8 X10'3 (1.8-7.7); PLATELET COUNT 279 X10'3 (140-440); RED CELL DISTRIBUTION WIDTH 17.9 % (11.5-14.5); WHITE BLOOD COUNT 8.1 X10'3 (4.5-11.0)
--- NOTE | 2021-08-05 06:55 | NUR ---
Problems reprioritized. Patient report given, questions answered & plan of care reviewed with AJ BRADEN.
[2021-08-05 07:38] LABS: ALANINE AMINOTRANSFERASE 107 U/L (12-78); ALBUMIN 2.4 G/DL (3.4-5.0); ALBUMIN/GLOBULIN RATIO 0.7 (1.1-1.5); ALKALINE PHOSPHATASE 108 IU/L (46-116); ANION GAP 7 (8-16); ASPARTATE AMINO TRANSFERASE 25 U/L (10-37); BLOOD UREA NITROGEN 39 MG/DL (7-18); BUN/CREATININE RATIO 21.5 (6.6-38.0); CALCIUM 8.3 MG/DL (8.5-10.1); CHLORIDE 103 MMOL/L (99-107); CREATININE 1.81 MG/DL (0.40-0.90); GLUCOSE 118 MG/DL (70-104); POTASSIUM 4.4 MMOL/L (3.5-5.1); SODIUM 136 MMOL/L (135-145); TOTAL CARBON DIOXIDE 26.4 MMOL/L (24-32); TOTAL PROTEIN 5.7 G/DL (6.4-8.2); eGFR 28 ML/MIN
[2021-08-05] MEDS: aspirin 81mg, enteric-coated 1 TAB TABLET.DR PO SCH (09:37)
[2021-08-05] MEDS: carvedilol 6.25mg tablet PO SCH (09:37)
[2021-08-05] MEDS: pantoprazole 40mg Tablet.DR PO SCH (09:38)
[2021-08-05] MEDS: amiodarone 200mg tablet PO SCH ×2 (09:38→20:27)
[2021-08-05] MEDS: docusate sod 100mg capsule PO SCH ×2 (09:38→20:27)
--- NOTE | 2021-08-05 14:45 | NUR ---
Page: Question for Dr. Rojas on Discharge Orders. PAGER ID: [phone] MESSAGE: Regarding Zeynep Mcknight 3011 Discharge Order following Thoracentesis. Please Call [phone] Clarita Elkins RN
[2021-08-05] MEDS ORDERED: DIGO-20 PO (15:57)
[2021-08-05] MEDS ORDERED: COR3.125T PO (15:57)
[2021-08-05] MEDS ORDERED: carvedilol 6.25mg tablet PO ONE ×4 (18:45→23:00)
[2021-08-05] MEDS ORDERED: digoxin 250mcg/ml 2ml ampule IV ONE (19:15)
[2021-08-05] MEDS: magnesium hydroxide 30ml (MOM) UD suspension PO PRN (20:27)
[2021-08-06 02:00] VITALS: BP 102/43
[2021-08-06] MEDS ORDERED: digoxin 250mcg/ml 2ml ampule IV ONE (02:30)
[2021-08-06 06:00] VITALS: BP 101/60
--- NOTE | 2021-08-06 06:22 | NUR ---
Problems reprioritized. Patient report given, questions answered & plan of care reviewed with Clarita BRADEN.
[2021-08-06 06:58] VITALS: BP 109/72
[2021-08-06 07:22] LABS: ALBUMIN 2.3 G/DL (3.4-5.0); ANION GAP 5 (8-16); BLOOD UREA NITROGEN 31 MG/DL (7-18); BUN/CREATININE RATIO 20.3 (6.6-38.0); CALCIUM 8.2 MG/DL (8.5-10.1); CHLORIDE 104 MMOL/L (99-107); CREATININE 1.53 MG/DL (0.40-0.90); GLUCOSE 109 MG/DL (70-104); POTASSIUM 4.7 MMOL/L (3.5-5.1); SODIUM 136 MMOL/L (135-145); TOTAL CARBON DIOXIDE 27.4 MMOL/L (24-32); eGFR 34 ML/MIN
[2021-08-06] MEDS ORDERED: carvedilol 6.25mg tablet PO SCH (08:00)
[2021-08-06] MEDS: amiodarone 200mg tablet PO SCH (08:31)
[2021-08-06] MEDS: docusate sod 100mg capsule PO SCH (08:31)
[2021-08-06] MEDS: aspirin 81mg, enteric-coated 1 TAB TABLET.DR PO SCH (08:31)
[2021-08-06] MEDS: pantoprazole 40mg Tablet.DR PO SCH (08:31)
[2021-08-06] MEDS: levoFLOXACIN 750MG TABLET PO SCH (08:31)
[2021-08-06] MEDS: acetaminophen 325mg tablet PO PRN (08:32)
[2021-08-06] MEDS ORDERED: AMIO200T67 PO (14:30)
== END 2021-08-06 13:55 | disposition home or self-care (01) | DRG 193 ==
LOC: ER 22:30 → ED HOLD 07-31 03:47 → PCU 3S 07-31 22:20
PROVIDERS: ADMIT Family Medicine; ATTEND Internal Medicine
PROC: 0W9B3ZZ Drainage of Left Pleural Cavity, Percutaneous Approach (ICD-10-PCS; principal; 2021-08-03)
PROC: 0W9B3ZZ Drainage of Left Pleural Cavity, Percutaneous Approach (ICD-10-PCS; 2021-08-05)
DX: J18.8 Other pneumonia, unspecified organism (principal); I50.43 Acute on chronic combined systolic (congestive) and diastolic (congestive) heart failure; J96.01 Acute respiratory failure with hypoxia; I13.0 Hypertensive heart and chronic kidney disease with heart failure and stage 1 through stage 4 chronic kidney disease, or unspecified chronic kidney disease; E46 Unspecified protein-calorie malnutrition; E87.1 Hypo-osmolality and hyponatremia; E87.2 Acidosis; N17.9 Acute kidney failure, unspecified; J91.8 Pleural effusion in other conditions classified elsewhere; J18.9 Pneumonia, unspecified organism; D64.9 Anemia, unspecified; N18.30 Chronic kidney disease, stage 3 unspecified; I25.10 Atherosclerotic heart disease of native coronary artery without angina pectoris; E78.00 Pure hypercholesterolemia, unspecified; E78.5 Hyperlipidemia, unspecified; I05.0 Rheumatic mitral stenosis; R00.0 Tachycardia, unspecified; I48.0 Paroxysmal atrial fibrillation; K73.9 Chronic hepatitis, unspecified; K76.1 Chronic passive congestion of liver; Z79.82 Long term (current) use of aspirin; Z79.899 Other long term (current) drug therapy; Z79.01 Long term (current) use of anticoagulants; Z95.3 Presence of xenogenic heart valve; Z68.31 Body mass index [BMI] 31.0-31.9, adult; T50.2X5A Adverse effect of carbonic-anhydrase inhibitors, benzothiadiazides and other diuretics, initial encounter; Y92.230 Patient room in hospital as the place of occurrence of the external cause; I95.2 Hypotension due to drugs
CPT/HCPCS: 32555; 36415; 71045; 71046; 80048; 80053; 80061; 80076; 80162; 82550; 83036; 83605; 83690; 83735; 83880; 84100; 84145; 84439; 84443; 84484; 85025; 85379; 85610; 85730; 87040; 87081; 92508; 92616; 93005; 93306; 94760; 96374; 96375; 97110; 97116; 97161; 97530; 99291; G0378; J0282; J1160; J1644; J1940; J1956; J3490; J7030; J7040

== ENCOUNTER 2021-11-22 10:48 | Outpatient (CLI) | payer MEDICARE, BC ==
[~2021-11-22 10:48] MED LIST changes: +AMIO200T67 PO; +APIX5TAB3 PO; -ASPI-1071 PO; +ASPI-1397 PO; +COR3.125T PO; +DIGO-20 PO; -FURO20TA4 PO; +FURO40TA4 PO; -Fish Oil PO; -HYDR-3972 PO; -LOP12.5T PO; -POTA8TAB69 PO
== END 2021-11-22 23:59 | disposition home or self-care (01) ==
LOC: VAS 10:48
PROVIDERS: ATTEND Surgery
DX: I82.811 Embolism and thrombosis of superficial veins of right lower extremity (principal); I72.4 Aneurysm of artery of lower extremity
CPT/HCPCS: 93926; 93971

== ENCOUNTER 2024-01-08 11:24 | Day surgery (SDC) | payer MEDICARE, BC ==
[2024-01-04 15:20] LABS: BASOPHILS % (AUTO) 0.3 % (0-1); EOSINOPHILS # (AUTO) 0.1 X10'3 (0-0.9); EOSINOPHILS % (AUTO) 1.3 % (0-6); HEMATOCRIT 34.1 % (35.0-45.0); LYMPHOCYTES # (AUTO) 1.5 X10'3 (1.1-4.8); LYMPHOCYTES % (AUTO) 20.8 % (21-51); MEAN CORPUSCULAR HGB CONC 32.4 g/dL (33.0-36.5); MEAN CORPUSCULAR VOLUME 92.6 FL (78-98); MEAN PLATELET VOLUME 8.3 FL (7.4-10.4); MONOCYTES # (AUTO) 0.7 X10'3 (0-0.9); MONOCYTES % (AUTO) 9.4 % (2-12); NEUTROPHILS % (AUTO) 68.2 % (42-75); PLATELET COUNT 191 X10'3 (140-440); RED BLOOD COUNT 3.68 X10'6 (4.20-5.60); RED CELL DISTRIBUTION WIDTH 16.8 % (11.5-14.5); WHITE BLOOD COUNT 7.4 X10'3 (4.5-11.0)
[2024-01-04 15:31] LABS: ALANINE AMINOTRANSFERASE 19 U/L (12-78); ALBUMIN 2.7 G/DL (3.4-5.0); ALBUMIN/GLOBULIN RATIO 0.9 (1.1-1.5); ALKALINE PHOSPHATASE 65 IU/L (46-116); ANION GAP 9 (8-16); ASPARTATE AMINO TRANSFERASE 11 U/L (10-37); BILIRUBIN,TOTAL 0.7 MG/DL (0.1-1.0); BLOOD UREA NITROGEN 12 MG/DL (7-18); BUN/CREATININE RATIO 8.8 (10.0-20.0); CALCIUM 8.3 MG/DL (8.5-10.1); CHLORIDE 108 MMOL/L (99-107); CREATININE 1.37 MG/DL (0.40-0.90); GLUCOSE 95 MG/DL (70-104); POTASSIUM 4.3 MMOL/L (3.5-5.1); SODIUM 144 MMOL/L (135-145); TOTAL PROTEIN 5.6 G/DL (6.4-8.2); eGFR 38 ML/MIN
[2024-01-08] VITALS (10 sets, daily range): BP systolic 109–147; BP diastolic 57–83; PULSE 64–76; RESP 12–16; TEMP 97.2; O2SAT 94–99
[~2024-01-08] VITALS: Ht 167.6 cm; Wt 89.4 kg
[2024-01-08] MEDS: cefazolin 2gm/D5W 100mL 100 ML IV ONE (05:30)
[2024-01-08] MEDS: DOCUMENT DATE & TIME OF BETA-BLOCKER PO ONE (08:00)
[~2024-01-08 11:24] MED LIST changes: +AMIO100T4 PO; -AMIO200T67 PO; -ASPI-1397 PO; -COR3.125T PO; -DIGO-20 PO; +LORA10TA7 PO; +METO-384 PO; +ONDA-104 PO; -ROSU20TA31 PO; +famotidine 20mg tablet PO ONE; +ringers solution, lacted 1,000 ML IV SCH
[2024-01-08] MEDS ORDERED: BUPIVAcaine 2.5mg/ml inj 50ml vial (contains preservative) ONE ×2 (11:37→12:11)
[2024-01-08] MEDS ORDERED: sevoflurane 250ml liquid IH ONE (12:05)
[2024-01-08] MEDS ORDERED: LIDOcaine 1% (10mg/ml)w/preservative inj. 20ml MDV ONE (12:10)
[2024-01-08] MEDS ORDERED: methylene blue (5mg/ml) 50mg/10ml ampul IV ONE (12:10)
[2024-01-08] MEDS ORDERED: BUPIVACAINE liposomal/PF 13.3 MG/ML vial IM ONE (12:11)
[2024-01-08] MEDS ORDERED: fentaNYL/PF 50MCG/1 ML 2ML syringe ONE (12:12)
[2024-01-08 12:13] LABS: PRE OP PROTIME 10.9 SECONDS (9.0-12.0)
[2024-01-08] MEDS ORDERED: midazolam 1 mg/ML 2ml injection ONE (12:13)
[2024-01-08] MEDS ORDERED: propofol inj 20 ML IV ONE (12:30)
[2024-01-08] MEDS ORDERED: LIDOcaine 1%/PF 5ML 10 MG/ML VIAL ONE (12:30)
[2024-01-08] MEDS ORDERED: ROPIVAcaine 0.5% (5mg/ml) 30ml vial ONE (12:30)
[2024-01-08] MEDS ORDERED: ringers solution, lacted 1,000 ML IV SCH (12:55)
[2024-01-08] MEDS ORDERED: labetalol 20mg/4ml (5mg/ml) syringe IV PRN (12:55)
[2024-01-08] MEDS ORDERED: proCHLORperazine 10 MG/2 ml inj IV PRN (12:55)
[2024-01-08] MEDS ORDERED: ondansetron/PF 4mg/2ml inj IV PRN (12:55)
[2024-01-08] MEDS ORDERED: meperidine/PF 25mg/ml syringe IV PRN ×2 (12:55)
[2024-01-08] MEDS ORDERED: morphine 2 MG/ML inj. syringe IV PRN (12:55)
[2024-01-08] MEDS ORDERED: enalaprilat dihydrate 2.5mg/2ml vial IV PRN (12:55)
[2024-01-08] MEDS ORDERED: morphine 4 MG/ML inj SYRINge IV PRN (12:55)
[2024-01-08] MEDS: BUPIVAcaine 2.5mg/ml inj 50ml vial (contains preservative) SQ ONE (13:03)
[2024-01-08] MEDS ORDERED: acetaminophen 1,000mg/100ml IV 100 ML IV ONE (14:22)
[2024-01-08] MEDS ORDERED: ondansetron/PF 4mg/2ml inj ONE (14:22)
[2024-01-08] MEDS: meperidine/PF 25mg/ml syringe IV PRN (16:02)
[2024-01-08] MEDS: HYDROcodone/acetaminophen 5mg/325mg tablet PO ONE (16:13)
== END 2024-01-08 16:25 | disposition home or self-care (01) ==
LOC: PAS 11:24
PROVIDERS: ATTEND Surgery
DX: C50.111 Malignant neoplasm of central portion of right female breast (principal); C77.3 Secondary and unspecified malignant neoplasm of axilla and upper limb lymph nodes; G89.18 Other acute postprocedural pain; I44.7 Left bundle-branch block, unspecified; E66.9 Obesity, unspecified; G47.33 Obstructive sleep apnea (adult) (pediatric); I48.91 Unspecified atrial fibrillation; Z79.01 Long term (current) use of anticoagulants; Z79.899 Other long term (current) drug therapy; Z98.890 Other specified postprocedural states; Z68.31 Body mass index [BMI] 31.0-31.9, adult
CPT/HCPCS: 19301; 36415; 38525; 38900; 64999; 76098; 80053; 82948; 85025; 85610; 85730; 93005; A4215; A4618; A6213; A6258; A7000; J0131; J0690; J1100; J2175; J2250; J2405; J2704; J2795; J3010; J3490; J7030; J7120; Q9968; Z7506; Z7508; Z7512; Z7610; 88307; C9250; C9290